=== PATIENT | female | born 1965 | race Asian ===

== ENCOUNTER 2019-05-21 08:38 | Emergency (ER) | payer OTHER ==
[~2019-05-21] VITALS: Ht 160 cm; Wt 59.9 kg
[2019-05-21 08:50] VITALS: Ht 160 cm; Wt 59.9 kg
[2019-05-21 11:38] VITALS: BP 130/81
== END 2019-05-21 11:38 | disposition home or self-care (01) ==
LOC: ED 08:38
DX: J40 Bronchitis, not specified as acute or chronic (principal)
CPT/HCPCS: 99406; J7512; J7613; J7644; Q0092